=== PATIENT | male | born 1980 ===

== ENCOUNTER 2022-10-05 11:55 | Outpatient (CLI) | payer OTHER | END 2022-10-05 12:00 | disposition home or self-care (01) | LOC: SONOGRAMA 11:55 | PROVIDERS: ATTEND Physical Medicine & Rehabilitation | DX: G57.32 Lesion of lateral popliteal nerve, left lower limb (principal); S86.312A Strain of muscle(s) and tendon(s) of peroneal muscle group at lower leg level, left leg, initial encounter; S93.402A Sprain of unspecified ligament of left ankle, initial encounter ==

== ENCOUNTER 2022-10-23 10:14 | Outpatient (CLI) | payer OTHER | END 2022-10-23 10:18 | disposition home or self-care (01) | LOC: MRI 10:14 | PROVIDERS: ATTEND Physical Medicine & Rehabilitation | DX: M54.59 Other low back pain (principal); M54.16 Radiculopathy, lumbar region | CPT/HCPCS: 72148 ==

== ENCOUNTER 2024-05-07 13:23 | Outpatient (CLI) | payer OTHER | END 2024-05-07 13:35 | disposition home or self-care (01) | LOC: MRI 13:23 | PROVIDERS: ATTEND Orthopaedic Surgery | DX: M48.061 Spinal stenosis, lumbar region without neurogenic claudication (principal) | CPT/HCPCS: 72148 ==